=== PATIENT | female | born 1955 | race Caucasian/White ===

== ENCOUNTER 2016-10-04 17:00 | Emergency (ER) | payer OTHER, MEDICARE ==
[~2016-10-04] VITALS: Ht 152.4 cm; Wt 60.3 kg
[~2016-10-04 17:00] MED LIST: ASPIRIN EC81 M1 PO; BUMETANIDE2 M1 PO; COREG25 M1 PO; COUMADIN 2 MG TA2 MG PO; COUMADIN 4MG TAB4 MG PO; DEMADEX20 M1 PO; DIALYVITE 8000.8 MG PO; ECOTRIN81 MG PO; ISOSORBIDE MONO30 M1 PO; LEVEMIR FLEX100 U/M1 SC; LEVEMIR100 UNIT/1 SC; LISINOPRIL10 MG PO; METOLAZONE5 M1; NOVOLOG100 U/ML SC; POTASSIUM CHLO20 ME2; PRAVASTATIN SOD80 M1 PO; RENVELA800 M1 PO; WARFARIN SODIUM2 M1 PO; ZETIA10 M1 PO
[2016-10-04 17:17] VITALS: BP 121/80
[2016-10-04] MEDS ORDERED: COUMADIN1 M1 PO (17:39)
[2016-10-04] MEDS ORDERED: COUMADIN2 M1 PO (17:40)
[2016-10-04] MEDS ORDERED: COLACE100 M1 PO (17:41)
[2016-10-04] MEDS ORDERED: LACTULOSE10 GM/152 PO (17:41)
[2016-10-04] MEDS ORDERED: METOPROLOL SUCC25 M1 PO (17:42)
--- NOTE | 2016-10-04 18:12 | ED UPPER/LOWER EXTREMITY COMPL ---
History of Present Illness General Chief Complaint: Laceration Procedure Stated Complaint: SLIPPED OFF STEP STOOL,LAC TO LEFT LEG,ON COUMADIN Source: patient, family, old records Exam Limitations: no limitations Vital Signs & Intake/Output Vital Signs & Intake/Output Vital Signs Date Time Temp Pulse Resp B/P Pulse O2 O2 Flow FiO2 Ox Delivery Rate 10/04 1717 96.6 84 18 121/80 97 Room Air ED Intake and Output 10/05 0000 10/04 1200 Intake Total Output Total Balance Patient 133 lb Weight Allergies Coded Allergies: NO KNOWN ALLERGIES (07/18/12) Reconcile Medications Aspirin (Ecotrin*) 81 MG TABLET.DR 1 TAB PO DAILY HEART/BLOOD (Reported) Bumetanide 2 MG TABLET 1 TAB PO BID KIDNEYS (Reported) Carvedilol (Coreg) 25 MG TABLET 1 TAB PO BID HEART/BP (Reported) Docusate Sodium (Colace) 100 MG CAPSULE 1 CAP PO DAILY STOOL SOFTENER ( Reported) Ezetimibe (Zetia) 10 MG TABLET 1 TAB PO EOD CHOLESTEROL (Reported) Folic Acid/Vit Bcomp,C (Dialyvite 800 Tablet) 0.8 MG TABLET 1 TAB PO DAILY SUPPLEMENT (Reported) Insulin Aspart, Recombinant (Novolog) 100 U/ML MIRIAM 0 UNITS SC TIDAC GLUCOSE CONTROL (Reported) BLOOD SUGAR # OF UNITS < 80 NONE 80-150 NONE 151-200 4 UNITS 201-250 6 UNITS 251-300 8 UNITS 301-350 10 UNITS 351-400 12 UNITS >400 14 UNITS and call MD Insulin Detemir (Levemir) 100 UNIT/ML VIAL 16 UNITS SC QAM DM (Reported) Isosorbide Mononitrate (Isosorbide Mononitrate ER) 30 MG TAB.ER.24H 1 TAB PO DAILY HEART (Reported) Lactulose 10 GRAM/15 ML SOLUTION 30 ML PO DAILY GI (Reported) Metoprolol Succinate 25 MG TAB 0.5 TAB PO DAILY BP (Reported) Pravastatin Sodium 80 MG TAB 1 TAB PO DAILY CHOLESTEROL (Reported) Sevelamer Carbonate (Renvela) 800 MG TABLET 1 TAB PO TID KIDNEYS (Reported) Warfarin Sodium (Coumadin) 1 MG TABLET 1 TAB PO AD BLOOD THINNER (Reported) Warfarin Sodium (Coumadin) 2 MG TABLET 1 TAB PO AD BLOOD THINNER (Reported) Triage Note: PRESENTS TO ED FOR EVALUATION OF LEFT LOWER LEG LACERATION S/P MECHANICAL FALL. DENIED HITTING HER HEAD. Triage Nurses Notes Reviewed? yes HPI: 61-year-old female here with complaints of left lower leg laceration. She struck it while falling forward after she tripped. There is no other injury. This occurred prior to arrival, mild sharp pain, moderate bleeding as she is on Coumadin. Bleeding has slowed with dressing applied. No other treatment thus far, last 6 years ago, she is a dialysis patient. (ZACHARY MCKENZIE) Past History Travel History Traveled to [place] past 21 day No Medical History Any Pertinent Medical History? see below for history Neurological: peripheral neuropathy Cardiovascular: AFIB, CHF, hypertension, myocardial infarction, PACER/DEFIB HIGH CHOLESTEROL Renal: CKD PERITONEAL DIALYSIS Endocrine: DIABETIC INSULIN Blood Disorders: anemia Surgical History Surgical History: non-contributory Psychosocial History What is your primary language Grenadian Tobacco Use: Never used Family History Family History, If Any: Relation not specified for: Breast cancer in mother Diabetes mellitus in mother Hx Contributory? No (ZACHARY MCKENZIE) Review of Systems Review of Systems Constitutional: Reports: see HPI. EENTM: Reports: no symptoms. Respiratory: Reports: no symptoms. Cardiovascular: Reports: no symptoms. Gastrointestinal/Abdominal: Reports: no symptoms. Genitourinary: Reports: no symptoms. Musculoskeletal: Reports: no symptoms. Skin: Reports: see HPI. Neurological/Psychological: Reports: no symptoms. Hematologic/Endocrine: Reports: no symptoms. Immunological: Reports: no symptoms. All Other Systems: Reviewed and Negative (ZACHARY MCKENZIE) Physical Exam Physical Exam General Appearance: well developed/nourished Comments: Well-developed well-nourished no apparent distress. HEENT: Atraumatic, extraocular motion intact Neck: Supple, no lymphadenopathy Back: Nontender Respiratory: No respiratory distress Extremities: No edema, full range of motion Neuro: Alert and oriented x3 Psych: Mood affect normal, normal memory normal judgment. Skin: Warm and dry, no rash on exposed skin Left lower leg anterior distal third with a V-shaped full thickness skin tear measuring approximately 4 cm. Mild active oozing of dark blood. Mild tenderness on palpation, no signs of fracture. Neurovascularly intact. (ZACHARY MCKENZIE) Progress Differential Diagnosis: arterial insufficiency, cellulitis, CHF, compartment syndrome, contusion, dislocation, DVT, fracture, gout, septic arthritis, sprain, tendon injury Plan of Care: Wound of the lower leg was cleansed and irrigated, cleansed with hydrogen peroxide, benzoin and Steri-Strips applied to close the wound and approximate the skin tear edges. Xeroform and gauze, Osorio wrap and Dustin bandage applied by myself. No active bleeding, patient tolerated well without complications, she will watch for any signs of infection, leaving the Steri-Strips on until he fell off, she understands this will take several weeks to heal. Do not touch the dressing for the next 3 days (ZACHARY MCKENZIE) Departure Departure Disposition: HOME OR SELF CARE Condition: Stable Clinical Impression Primary Impression: Skin tear of left lower leg without complication Qualifiers: Encounter type: initial encounter Qualified Code: S81.802A - Unspecified open wound, left lower leg, initial encounter Referrals: DAJA ACEVEDO MD (PCP/Family) Additional Instructions: Keep the Dustin bandage and dressing in place for the next 3 days. You may remove the dressing and then and leave the Steri-Strips in place until they fall off. Watch for signs of infection such as redness swelling discharge and worsening pain. Return or follow-up with your primary care doctor with any concerns. Departure Forms: Customer Survey General Discharge Information (ZACHARY MCKENZIE) PA/FARM TRACTOR MECHANIC Co-Sign Statement Statement: ED Attending supervision documentation- [] I saw and evaluated the patient. I have also reviewed all the pertinent lab results and diagnostic results. I agree with the findings and the plan of care as documented in the PA's/FARM TRACTOR MECHANIC's documentation. [X] I have reviewed the ED Record and agree with the PA's/FARM TRACTOR MECHANIC's documentation. [] Additions or exceptions (if any) to the PAs/FARM TRACTOR MECHANIC's note and plan are summarized below: [] (DESMOND LINARES,ANGELA)
== END 2016-10-04 18:19 ==
LOC: ERH 17:00
DX: S81.812A Laceration without foreign body, left lower leg, initial encounter (principal); W18.09XA Striking against other object with subsequent fall, initial encounter; Z79.01 Long term (current) use of anticoagulants